=== PATIENT | male | born 1960 | race Caucasian/White ===

== ENCOUNTER 2021-10-06 12:24 | Emergency (ER) | payer OTHER, SELFPAY ==
[2021-10-06 12:39] VITALS: BP 187/83; PULSE 96; RESP 18; TEMP 39; O2SAT 97
--- NOTE | 2021-10-06 13:00 | ED.MALEGU ---
HPI - Male Genitourinary General Chief complaint: Urogenital-Male Stated complaint: uti Time Seen by Provider: 10/06/21 13:00 Source: patient Mode of arrival: ambulatory Limitations: no limitations History of Present Illness HPI Narrative: Bharat Acuna is a 61 yo male with a PMH of urosepsis, high blood pressure, high cholesterol, GERD, who comes with 102.5 temperature with lower back pain and decreased urine output that started yesterday he has a history of urosepsis a year ago, he has no history of enlarged prostate or renal stones Related Data Home Medications Medication Instructions Recorded Confirmed albuterol sulfate INHALATION 10/06/21 benzonatate mg PO 10/06/21 clonidine HCl 10/06/21 furosemide 10/06/21 hydralazine 10/06/21 metoprolol succinate PO 10/06/21 omeprazole 10/06/21 rosuvastatin mg 10/06/21 Allergies Allergy/AdvReac Type Severity Reaction Status Date / Time No Known Allergies Allergy Verified 10/06/21 13:31 Review of Systems Review of Systems: CONSTITUTIONAL: Denies fever, chills, sweats. EYES: Denies visual changes, redness, discharge. ENT: Denies rhinorrhea, congestion, sore throat, otalgia. CARDIOVASCULAR: Denies chest pain, palpitations, edema. RESPIRATORY: Denies dyspnea, wheezing, cough GASTROINTESTINAL: Denies abdominal pain, nausea, vomiting, diarrhea. GENITOURINARY: Denies dysuria, has hematuria, has low back pain abnormal discharge SKIN: Denies rash or itching. NEUROLOGIC: Denies numbness, or focal weakness. PSYCHIATRIC: Denies anxiety or depression. PMFSH Past Medical History Medical History GERD (gastroesophageal reflux disease) High cholesterol HTN (hypertension) Sepsis Social History Social History (Updated 10/06/21 @ 13:28 by Anai Forrester CNP) Smoking status: Former smoker Alcohol intake: current Living arrangements: with family Comments At time of signature, I agree with nursing past medical, surgical, social and family history. There is no relevant family history pertinent to the presenting complaint. Patient has a history of hypertension Exam Narrative: GENERAL: This is a well-nourished, well-developed patient, in m moderate distress. Febrile HEAD: normocephalic, atraumatic. EYES: Sclera clear/white. Vision is grossly intact. EARS: External ears normal. Hearing grossly intact. NOSE: External nose normal without nasal discharge, nares without redness, no rhinorrhea. THROAT: Mucous membranes moist, NECK: Neck supple, non-tender CARDIOVASCULAR: Regular rate and rhythm without murmurs, gallops, or rubs. RESPIRATORY: Clear to auscultation. Breath sounds equal bilaterally. No wheezes, rales, or rhonchi. GASTROINTESTINAL: Abdomen soft, SKIN: warm, intact with no suspicious lesions or rash, good texture and turgor. NEURO: awake, alert, and oriented to person, place and time. There were no obvious focal neurologic abnormalities. Steady gait EXTREMITIES: Normal range of motion. BACK: tender bilateral low without deformity Course Course Emergency Course: Patient here with elevated temperature low back pain his urine dipstick shows blood only; patient has history of urosepsis and no history of enlarged prostate Discussion transfer patient to appropriate treatment-patient and want to be sent to [facility] Vital Signs Vital signs: Vital Signs Temperature 102.2 F H 10/06/21 12:39 Pulse Rate 96 10/06/21 12:39 Respiratory Rate 18 10/06/21 12:39 Blood Pressure 187/83 H 10/06/21 12:39 Pulse Oximetry 97 10/06/21 12:39 Temperature 104.1 F H 10/06/21 13:37 Pulse Rate 101 H 10/06/21 13:34 Respiratory Rate 18 10/06/21 12:39 Blood Pressure 187/83 H 10/06/21 12:39 Pulse Oximetry 95 10/06/21 13:34 MDM - Male Genitourinary Differential Diagnosis Differential diagnosis: Likely urinary tract infection, prostatitis, acute retention of urine and othe
[2021-10-06 13:34] VITALS: PULSE 101; TEMP 40.2; O2SAT 95
[2021-10-06] MEDS: ONDANSETRON HCL ODT 4 MG TABLET PO (13:36)
[2021-10-06 13:37] VITALS: TEMP 40.1
[2021-10-06] MEDS: ACETAMINOPHEN 500 MG TABLET 1000 MG PO (13:37)
== END 2021-10-06 13:45 | disposition short-term general hospital (02) ==
PROVIDERS: Emergency Provider Nurse Practitioner; PCP Internal Medicine
DX: R34 Anuria and oliguria (principal); R50.9 Fever, unspecified; M54.50 Low back pain, unspecified; Z20.822 Contact with and (suspected) exposure to COVID-19; K21.9 Gastro-esophageal reflux disease without esophagitis; E78.00 Pure hypercholesterolemia, unspecified; I10 Essential (primary) hypertension; Z87.891 Personal history of nicotine dependence
CPT/HCPCS: 81003; 87426; 99213; A9270; C9803; G0463

== ENCOUNTER → 2021-12-09 18:01 | Outpatient (CLI) | payer OTHER, SELFPAY ==
--- NOTE | ~2021-12-09 | XR_ITS ---
EXAMINATION: XR chest 2V EXAM DATE: 12/09/2021 18:15 INDICATION: Pleural Effusion. TECHNIQUE: Frontal and lateral projections of the chest obtained and reviewed. There is no prior shazia dy for comparison. FINDINGS: Patient has diffuse idiopathic skeletal hyperostosis (DISH). The lungs are clear. There a re no pleural effusions. The cardiomediastinal silhouette is within normal limits. There is no pneu mothorax suspected. IMPRESSION: No acute cardiopulmonary findings. Reviewed, dictated and finalized at location G. [facility]
== END ==
PROVIDERS: PCP Internal Medicine; Visit Provider Internal Medicine
DX: J90 Pleural effusion, not elsewhere classified (principal)
CPT/HCPCS: 71046